=== PATIENT | male | born 1960 | race Caucasian/White ===

== ENCOUNTER 2017-03-09 07:30 | Day surgery (SDC) | payer OTHER ==
[~2017-03-09 07:30] MED LIST: AMLO5TAB; AMLODIPINE5 M1 PO; CLARITIN 10MG T10 MG PO; FLONASE 50 MCG16 GM; KEFLEX 500MG.500 MG PO; LISINOPRIL20 MG PO; LISINOPRIL40 MG PO; NYSTATIN CREAM15 GM EX; PANTOPRAZOLE SO40 M1 PO; TERBINAFINE250 MG PO; TOBRAMYCIN AND2.5 ML OP; [UNRECOGNIZED DRUG - REMARK] PO
--- NOTE | 2017-03-09 09:00 | Operative Note ---
Colonoscopy (Ling) Procedure date: 03/09/17 Date of : 64 Procedure:Colonoscopy Colonoscopy with cold snare polypectomy Indications: Mr. Marin is a 56-year-old gentleman who is here for initial screening colonoscopy. He reports no abdominal pain, weight loss, change in his bowel habits or rectal bleeding. He reports no family history of colon cancer. Performing Provider: Allan Ling MD Referrring Provider: Sang Haile M.D. Sedation: Fentanyl 100 mg IV/Versed 5 mg IV Procedure: Prior to the procedure, a history and physical exam was performed, and patient medications and allergies were reviewed. The risks and benefits of the procedure and the sedation options and risks were discussed with the patient. All questions were answered and informed consent was obtained. Patient identification and proposed procedure were verified by the physician and the nurse. The patient was placed in a left lateral decubitus position. Throughout the procedure, the patient's blood pressure, pulse, and oxygen saturations were monitored continuously. Findings: On digital rectal examination there was normal rectal tone. There were no external hemorrhoids. The prostate was 2-3+ with some firmness but symmetric without nodules. The colonoscope was introduced through the anal canal to the rectum and advanced to the cecum. The ileocecal valve and appendiceal orifice were identified. The scope was advanced a short distance into the ileum which appeared grossly normal. The scope was then withdrawn into the colon. The cecum, ascending and transverse colon and mucosa were grossly normal. There were scattered diverticuli throughout the colon but more predominantly in the descending and sigmoid colon (LEFT colon). At the rectosigmoid junction was a 6- 7 mm polyp removed via cold snare polypectomy. The rectum itself was normal. Upon retroflexion within the rectum there were grade 1 internal hemorrhoids. Impressions: 1. Rectosigmoid polyp 2. Pandiverticulosis 3. Grade 1 internal hemorrhoids Recommendations: I will follow up the polyp pathology and recommend repeat colonoscopy again in 5 years based upon the polyp histology. I would encourage fiber supplementation on a long-term daily maintenance basis. Complications: None EBL (ml): 0 at 0859
[2017-03-09 15:11] VITALS: BP 120/79
== END 2017-03-09 09:40 | disposition home or self-care (01) ==
LOC: SDC 07:30
PROVIDERS: Internal Medicine Gastroenterology
PROC: 0DBN8ZX Excision of Sigmoid Colon, Via Natural or Artificial Opening Endoscopic, Diagnostic (ICD-10-PCS; principal; 2017-03-09 08:30)
DX: Z12.11 Encounter for screening for malignant neoplasm of colon (principal); D12.7 Benign neoplasm of rectosigmoid junction; K64.0 First degree hemorrhoids; K57.30 Diverticulosis of large intestine without perforation or abscess without bleeding